=== PATIENT | male | born 1935 | race Hispanic/Latino ===

== ENCOUNTER 2020-03-31 18:23 | Emergency (ER) | payer SELFPAY ==
[2020-03-31 19:18] LABS: #Basophils 0.1 thou/uL (0.0-0.2); #Lymphocytes 1.1 thou/uL (1.20-3.40); #Monocytes 0.8 thou/uL (0.11-0.59); #Neutrophils 11.8 thou/uL (1.40-6.50); %Basophils 0.4 % (0.0-1.0); %Lymphocytes 7.7 % (21.0-51.0); %Monocytes 5.6 % (0.0-10.0); %Neutrophils 86.3 % (42.0-75.0); Hemoglobin 13.6 g/dL (14.0-18.0); Mean Corpuscular HGB CONC 31.2 g/dL (32.0-36.0); Mean Corpuscular Hemoglobin 31.7 pg (27.0-31.0); Mean Platelet Volume 6.3 fL (7.4-10.4); Platelet Count 312 thou/uL (130-400); RBC Distribution Width 11.6 % (11.5-14.5); Red Blood Cell (RBC) Count 4.28 mill/uL (4.70-6.10); White Blood Cell (WBC) Count 13.7 thou/uL (4.8-10.8)
[2020-03-31 19:22] LABS: Bilirubin Moderate (Negative); Blood, Urine Small (Negative); Glucose, Urine (Dipstick) 100 mg/dL (Negative); Ketone, Urine 15 mg/dL (Negative); Leukocyte Negative (Negative); Nitrite Negative (Negative); Protein, Urine (Dipstick) 30 mg/dL (Neg-Trace); Specific Gravity, Urine 1.025 (1.005-1.030); Urobilinogen > or = 8.0 mg/dL (Less than 2); pH, Urine 5.5 (5.0-9.0)
[2020-03-31 19:23] LABS: Clarity SL HAZY (Clear)
[2020-03-31 19:31] LABS: Mucous/LPF 1+ LPF (<2+); RBC/HPF 0-3 HPF (0-3); Sperm/HPF Rare HPF (None Seen); WBC/HPF 0-3 HPF (0-3)
[2020-03-31 19:34] LABS: ALT (SGPT) 57 U/L (8-55); AST (SGOT) 99 U/L (5-34); Albumin 3.7 g/dL (3.4-4.8); Alkaline Phosphatase 203 U/L (40-110); Anion Gap 18 mmol/L (10-20); BUN (Urea Nitrogen) 17 mg/dL (8.4-25.7); Bilirubin, Total 3.2 mg/dL (0.2-1.2); CK (CPK) 2069 U/L (30-200); Calc. Creatinine Clearance 0 mL/min (70-130); Calcium 8.3 mg/dL (7.8-10.44); Carbon Dioxide 20 mmol/L (23-31); Chloride 100 mmol/L (98-107); Estimated GFR-MDRD 74; Globulin 4.1 g/dL (2.4-3.5); Glucose 208 mg/dL (83-110); Lipase 27 U/L (8-78); Potassium 3.7 mmol/L (3.5-5.1); Protein, Total 7.8 g/dL (5.8-8.1); Sodium 134 mmol/L (136-145)
--- NOTE | 2020-03-31 19:34 | CT ---
CT BRAIN NONCONTRAST: DATE: 03/31/2020 HISTORY: 84-year-old male with altered mental status FINDINGS: There is no evidence of acute intra-axial or extra-axial hemorrhage. There is no midline shift or any other mass effect. There is no extra-axial fluid collection. There is no evidence of obstructive hydrocephalus. Calvarium is intact. There is diffuse brain parenchymal volume loss. There are low att enuation areas in the white matter. These are nonspecific, but in a patient of this age, they are probably chronic ischemic white matter changes due to microvascular atherosclerosis. IMPRESSION: 1) No acute intracranial findings. 2) involutional changes and chronic ischemic white matter changes.
[2020-03-31] MEDS ORDERED: Sodium Chloride 0.9% 1,000 ML ONE (19:40)
[2020-03-31] MEDS ORDERED: Sodium Chloride 0.9% 100 ML ONE (20:12)
[2020-03-31] MEDS ORDERED: Cefepime 2 GM VIAL ONE (20:12)
[2020-03-31] MEDS ORDERED: Sodium Chloride 0.9% 250 ML 250 ML ONE (20:42)
--- NOTE | 2020-04-02 09:49 | RAD ---
RADIOGRAPH CHEST 1 VIEW: DATE: 04/02/2020 HISTORY: 84-year-old male with altered mental status. Concern for aspiration. 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 There is no evidence of airspace density, pulmonary edema , cardiomegaly, or pneumothorax. The lateral costophrenic angles are not effaced. There is an old left, displaced clavicular fracture deformity. IMPRESSION: 1) No acute pulmonary findings. 2) ectasia of thoracic aorta. 3) old left clavicle fracture
== END 2020-03-31 21:30 | disposition short-term general hospital (02) ==
LOC: NAV ERS 18:23
DX: A41.9 Sepsis, unspecified organism (principal); E86.0 Dehydration
CPT/HCPCS: 36415; 70450; 71045; 80053; 81003; 81015; 82140; 82550; 83605; 83690; 84443; 84484; 85025; 87040; 93005; 96365; 96367; J0692; J3370; J3490; J7050